=== PATIENT | female | born 1995 | race Caucasian/White ===

== ENCOUNTER 2016-08-15 00:21 | Emergency (ER) | payer SELFPAY ==
[~2016-08-15] VITALS: Ht 170.2 cm; Wt 113.4 kg
[2016-08-15 02:23] VITALS: BP 150/94
== END 2016-08-15 02:23 | disposition left against medical advice (07) ==
LOC: ED 00:21
DX: Z53.21 Procedure and treatment not carried out due to patient leaving prior to being seen by health care provider (principal)